=== PATIENT | female | born 1990 | race Caucasian/White ===

== ENCOUNTER 2025-02-02 06:14 | Inpatient (IN) | payer OTHER ==
[2025-02-02] MEDS ORDERED: METHYLERGONOVINE 0.2 MG/ML 1 ML AMP IM PRN (06:40)
[2025-02-02] MEDS ORDERED: CARBOPROST TROMETHAMINE 250 MCG/ML 1 ML AMP IM PRN (06:40)
[2025-02-02] MEDS ORDERED: miSOPROStoL 200 MCG TAB PO PRN (06:40)
[2025-02-02] MEDS ORDERED: TRANEXAMIC 1,000 MG/100ML-NACL 1,000 MG in EMPTY BAG 1 BAG IV PRN (06:40)
[2025-02-02] MEDS ORDERED: OXYTOCIN 10 UNIT/ML 1 ML VIAL IM PRN (06:40)
[2025-02-02 06:45] LABS: Glucose,Whole Blood 102 mg/dL (70-110)
[2025-02-02] MEDS ORDERED: OXYTOCIN 30 UNITS/500 ML NS 30 UNIT in SALINE 1 500ML.BAG IV SCH (06:45)
[2025-02-02] MEDS: LACTATED RINGERS 1,000 ML IV SCH ×2 (06:45→12:35)
[2025-02-02 07:11] LABS: Basophils % (A) 0 %; Eosinophils # (A) 0.1 k/uL (0-0.7); Eosinophils % (A) 1 %; HCT 41.7 % (34.0-46.0); HGB 13.4 gm/dL (11.4-16.0); Lymphocytes % (A) 28 %; MCHC 32.1 g/dL (31.0-37.0); MCV 87.2 fL (80.0-100.0); Mean Platelet Volume 8.8; Monocytes # (A) 0.7 k/uL (0-1.0); Monocytes % (A) 7 %; Neutrophils # (A) 6.5 k/uL (1.3-7.7); Neutrophils % (A) 62 %; Platelet Count 240 k/uL (150-450); RBC 4.79 m/uL (3.80-5.40); WBC 10.5 k/uL (3.8-10.6)
[2025-02-02] MEDS: CITRIC ACID-SODIUM CITRATE 15 ML CUP PO ONE (07:25)
--- NOTE | 2025-02-02 09:11 | P.HPOB ---
History of Present Illness H&P Date: 02/02/25 Chief Complaint: Scheduled repeat section with BS Ms. Olivera is a 34 year old at 39 weeks and 1 day with EDC of 02/08/25 by LMP consistent with 10 week US who presents for scheduled repeat section with bilateral salpingectomy. The has been complicated by diet-controlled gestational diabetes. NSTs have been reassuring throughout the third trimester. Obstetric history: 1 [facility] work-up: blood type A positive, antibody screen negative, rubella immune, VDRL non-reactive, HBsAg negative, HIV negative, HCV non-reactive, gonorrhea negative, chlamydia negative, 1 hour and 3 hour GTT abnormal, GBS negative. Past Medical History Additional Past Medical History / Comment(s): GDM History of Any Multi-Drug Resistant Organisms: None Reported Past Surgical History: Section, Tonsillectomy Additional Past Surgical History / Comment(s): bilateral tubes in ears Past Psychological History: Anxiety, Depression Smoking Status: Never smoker Medications and Allergies Home Medications Medication Instructions Recorded Confirmed Type Omeprazole 20 mg PO BID 02/02/25 02/02/25 History Vit No.179/Iron/Folic 1 each PO DAILY 02/02/25 02/02/25 History [ Tablet] Allergies Allergy/AdvReac Type Severity Reaction Status Date / Time No Known Allergies Allergy Verified 02/02/25 06:40 Exam Vital Signs Temp Pulse Resp BP Pulse Ox 02/02/25 06:39 97.0 F L 104 H 16 123/79 98 Intake and Output 02/01/25 02/02/25 02/02/25 22:59 06:59 14:59 Other: Weight 92.533 kg Focused physical exam is performed. This is a healthy-appearing in no apparent distress. Breathing is non-labored. Abdomen is gravid and non-tender. Extremities non-tender and non-edematous. heart tones are reactive and reassuring on NST. Results Result Diagrams: 02/02/25 06:40 Assessment and Plan Assessment: 34 year old at 39 weeks and 1 day presenting for scheduled repeat section with bilateral salpingectomy Plan: Admit, NPO, initiate protocol
[2025-02-02] MEDS ORDERED: diphenhydrAMINE 25 MG CAP PO PRN (09:17)
[2025-02-02] MEDS ORDERED: diphenhydrAMINE 50 MG/ML 1 ML VIAL IVP PRN ×2 (09:17)
[2025-02-02] MEDS ORDERED: ONDANSETRON 4 MG/2 ML VIAL IVP PRN (09:17)
[2025-02-02] MEDS ORDERED: ZOLPIDEM 5 MG TAB PO PRN (09:17)
[2025-02-02] MEDS ORDERED: METOCLOPRAMIDE 5 MG/ML 2 ML VIAL IVP PRN (09:17)
[2025-02-02] MEDS ORDERED: diphenhydrAMINE 50 MG CAP PO PRN (09:17)
[2025-02-02] MEDS ORDERED: NALOXONE 0.4 MG/ML 1 ML VIAL IV PRN (09:17)
--- NOTE | 2025-02-02 09:17 | P.OP ---
Date of Procedure: 02/02/25 Preoperative Diagnosis: 1. Term IUP at 39 weeks 2. History of prior section 3. No desires for TOLAC 4. GDMA1 Postoperative Diagnosis: Same Procedure(s) Performed: Repeat Lower Transverse Section with Bilateral Salpingectomy Implants: None Anesthesia: spinal Surgeon: Alva Llanos Clinical Resource Coordinator #1: Cathy Hope Estimated Blood Loss (ml): 309 IV fluids (ml): 1,000 Urine output (ml): 200 (clear yellow) Pathology: other (bilateral fallopian tubes) Condition: stable Disposition: floor Indications for Procedure: Ms. Olivera si a 34 year old at 39 weeks and 1 day presenting for scheduled repeat section with bilateral salpingectomy. The risks, benefits, and alternatives to section were discussed with the patient including risk of bleeding, infection, damage to surrounding structures including bladder/bowels/ureters, and post-operative VTE. The patient udnerstands that salpingectomy is not reversible and she would never again be able to become without IVF assistance. The patient understands these risks and desires to proceed with section. Operative Findings: Colorless amniotic fluid. Viable female infant in cephalic presentation. Nuchal cord x1. Apgars 9/9. Weight 7 pounds and 9 ounces (3420 grams). Description of Procedure: The patient was taken back to the operating room where spinal anesthesia was found to be adequate. Two grams of Ancef were given for infection prophylaxis. She was prepared and draped in the dorsal supine position with a leftward tilt. A Pfannenstiel skin incision was made with the scalpel. The incision was carried down to the fascia with a bovie. The fascia was incised and extended laterally with Do scissors. The superior aspect of the fascia was grasped with the Kacy clamps. The underlying rectus muscle was dissected off sharply with Do scissors. In a similar fashion, the inferior aspect of the fascia was elevated with Kacy clamps and the rectus muscle and pyramidalis were dissected off. Excellent hemostasis was achieved with the bovie. The rectus muscle was in the midline down to the level of the pubic symphysis. Pre- peritoneal fatty tissue was bluntly dissected to expose the peritoneum. The peritoneum was found to be free of adherent bowel and entered sharply with Do scissors. The peritoneal incision was extended superiorly and inferiorly to the bladder reflection with good visualization of the bladder. The bladder blade was inserted and vesicouterine peritoneum was identified. Intraabdominal survey revealed scant, clear peritoneal fluid and the thinned-out lower uterine segment. The vesicouterine peritoneum was opened with scissors and the bladder flap was developed. The bladder blade was repositioned to keep the bladder out of the operative field. The lower uterine segment was incised with a scalpel. The amniotic sac was ruptured and clear fluid was noted. The uterine incision was extended bluntly with lateral and upward traction. The fetus was in cephalic presentation. The head was elevated out of the pelvis with special attention paid to avoid using the uterine incision as a fulcrum. Gentle fundal pressure was applied once the head was brought into the incision. Nuchal cord x1 was reduced. The was delivered with no difficulty and was noted to be crying spontaneously. The mouth and nose were suctioned with a bulb. The cord was clamped and cut. The was handed off to the garment finisher. IV oxytocin was initiated to facilitate uterine contractions. The placenta was delivered intact with manual massage of uterine fundus. The uterus was then exteriorized and the inside of the uterus was gently wiped with a lap sponge to assure complete removal of placental membranes. The uterine incision was closed with 0-Vicryl suture in a running locked fashion. A second imbricating layer was placed with 0-Vicryl. The ovaries and tubes were found to be normal. Bilateral fallopian tubes were cauterized and cut from fimbriated end to the cornua using the Ligasure device. The uterusand ovaries were then gently returned to the abdominal cavity. The abdomen was copiously suction irrigated. The uterine incision was reinspected and excellent hemostasis was noted. The fascial layer was closed with a 0-Vicryl suture. The subcutaneous tissue was reapproximated with 2-0 Plain Gut. The skin was closed with 4-0 Monocryl in a subcuticular fashion.The patient tolerated the procedure well. All the counts were correct times two. The patient was taken to the recovery room in a stable condition. A physician surgical appliance fitter was utilized for the entire procedure due to the need for tissue retraction, dissection of vital structures, prevention and management of blood loss, and reduction in overall operative and anesthesia time as is the standard of care.
[2025-02-02] MEDS: ACETAMINOPHEN TAB 500 MG TAB PO SCH (12:35)
[2025-02-02] MEDS: KETOROLAC 15 MG/ML 1 ML VIAL IVP SCH (15:44)
[2025-02-02] MEDS: SENNOSIDES-DOCUSATE SODIUM 1 EACH TAB PO SCH (19:13)
[2025-02-02] MEDS ORDERED: ACETAMINOPHEN TAB 500 MG TAB PO SCH (20:00)
[2025-02-03 04:25] LABS: Basophils % (A) 0 %; Eosinophils # (A) 0.2 k/uL (0-0.7); Eosinophils % (A) 2 %; HCT 36.5 % (34.0-46.0); HGB 11.8 gm/dL (11.4-16.0); Lymphocytes % (A) 20 %; MCH 28.5 pg (25.0-35.0); MCHC 32.3 g/dL (31.0-37.0); MCV 88.4 fL (80.0-100.0); Monocytes # (A) 0.6 k/uL (0-1.0); Monocytes % (A) 6 %; Neutrophils # (A) 7.1 k/uL (1.3-7.7); Neutrophils % (A) 70 %; Platelet Count 169 k/uL (150-450); RBC 4.13 m/uL (3.80-5.40); RDW 14.2 % (11.5-15.5); WBC 10.1 k/uL (3.8-10.6)
[2025-02-03] MEDS: IBUPROFEN 800 MG TAB PO SCH (08:34)
--- NOTE | 2025-02-03 10:01 | P.PNOBGPC ---
Subjective - Subjective Principal diagnosis: Status post repeat low-transverse postop day 1 Interval history: Patient seen and examined. Denies nausea, vomiting, chest pain, shortness of breath or calf pain. Patient reports: Reports appetite normal, Reports voiding normally, Reports pain well controlled, Reports ambulating normally : doing well Objective - Vital Signs Latest vital signs: Vital Signs Temp Pulse Resp BP Pulse Ox 02/03/25 08:00 98.4 F 89 18 106/69 97 02/02/25 23:25 98.5 F 77 16 113/74 96 02/02/25 20:00 98.5 F 74 16 107/60 96 02/02/25 16:00 98.7 F 73 16 118/73 95 02/02/25 11:00 98.1 F 65 16 115/59 98 02/02/25 10:45 65 17 112/60 95 02/02/25 10:30 64 17 112/57 95 02/02/25 10:15 97.5 F L 62 17 114/58 94 L Intake and Output 02/02/25 02/03/25 02/03/25 22:59 06:59 14:59 Intake Total 600 Output Total 1100 600 Balance -500 -600 Intake: Oral 600 Output: Urine 1100 600 Uretheral (Soto) 600 Other: # Voids 1 1 - Exam Lungs: bilateral: normal Chest: Normal S1, Normal S2 Extremities: Present: normal Abdomen: Present: normal appearance, soft. Absent: distention, tenderness Incision: Present: normal, dry, intact Uterus: Present: normal, firm Assessment and Plan (1) Status post bilateral salpingectomy Current Visit: Yes Status: Acute Code(s): Z90.79 - ACQUIRED ABSENCE OF OTHER GENITAL ORGAN(S) SNOMED Code(s): 607074087 (2) Status post repeat low transverse section Current Visit: Yes Status: Acute Code(s): Z98.891 - HISTORY OF UTERINE SCAR FROM PREVIOUS SURGERY SNOMED Code(s): 284757626 Plan: 1. increase ambulation 2. reg diet
--- NOTE | 2025-02-03 10:16 | P.PN ---
Progress Note - Text Progress Note Date: 02/03/25 (7931) Anesthesia Postop day 1 Subjective: Status Post section with Duramorph. Patient seen and examined. Doing well without complaint. VAS 1 out of 10. No nausea or vomiting. Mild pruritus tolerable.. Denies fever. Gross lower extremity strength intact. Without apparent anesthetic complications. Objective: Vital signs reviewed Heart: Regular Rate Lungs: Good chest excursion Abdomen: Appears nondistended Assessment: Status post section with Duramorph postop day 1 Plan: 1. Continue current care with your medical management. Anticipated end to the duration of the Duramorph around surgery time today. You may see increased pain needs around this time. 2. This note was dictated using [employer] software. Please be advised there is a potential for misspellings or errors in inside sales advisor.
[2025-02-04 00:17] VITALS: RESP 16
--- NOTE | 2025-02-04 07:18 | P.DS ---
Providers Date of admission: 02/02/25 06:14 Expected date of discharge: 02/04/25 Attending physician: Alva Llanos MD Primary care physician: Bella Pena [facility] - Discharge Diagnosis(es) (1) Status post bilateral salpingectomy Current Visit: Yes Status: Acute (2) Status post repeat low transverse section Current Visit: Yes Status: Acute Hospital Course: Patient presented for RLTCS with BS. She underwent this procedure without complication. course was uneventful. She denies nausea, vomiting, chest pain, shortness of breath or calf pain. Her pain is well-controlled and she is tolerating regular diet, did have a bowel movement, voiding and ambul ating without difficulty. She will be discharged home postoperative day #2 in stable condition to follow-up in 2 weeks. Plan - Discharge Summary New Discharge Prescriptions: No Action Vit No.179/Iron/Folic [ Tablet] 1 each PO DAILY Omeprazole 20 mg PO BID Discharge Medication List Omeprazole 20 mg PO BID 02/02/25 [History] Vit No.179/Iron/Folic [ Tablet] 1 each PO DAILY 02/02/25 [History] Follow up Appointment(s)/Referral(s): Alva Llanos MD [STAFF PHYSICIAN] - 2 Weeks Discharge Disposition: HOME SELF-CARE
[2025-02-04 07:50] VITALS: BP 122/80; PULSE 77; TEMP 98.1
== END 2025-02-04 15:10 | disposition home or self-care (01) | DRG 539 ==
LOC: 4FBP 06:14
PROVIDERS: ADMIT Obstetrics & Gynecology; ATTEND Obstetrics & Gynecology
PROC: 0UB70ZZ Excision of Bilateral Fallopian Tubes, Open Approach (ICD-10-PCS; 2025-02-02)
PROC: 10D00Z1 Extraction of Products of Conception, Low, Open Approach (ICD-10-PCS; principal; 2025-02-02 08:00)
DX: O24.420 Gestational diabetes mellitus in childbirth, diet controlled (principal); O34.211 Maternal care for low transverse scar from previous cesarean delivery; Z37.0 Single live birth; Z3A.39 39 weeks gestation of pregnancy; L29.9 Pruritus, unspecified; Z30.2 Encounter for sterilization; Z79.899 Other long term (current) drug therapy
CPT/HCPCS: 85025; 86850; 86900; 86901